=== PATIENT | male | born 1955 | race Caucasian/White ===

== ENCOUNTER 2021-03-07 06:25 | Day surgery (SDC) | payer MEDICARE, BC, SELFPAY ==
[2021-03-01 11:26] VITALS: BMI 39.1
--- NOTE | 2021-03-03 14:45 | MHC.SHP ---
Pre-Procedural Eval Section A Date of Service: 03/03/21 The patient is an INPATIENT: No Changes since office visit: No Cold of Flu in the past 2 weeks, No New Medical Problems, No Changes in Medication and No Patient answered all questions The History & Physical has been completed within 30 days and I have reviewed it.: Yes Section B Chief Complaint: cataract Allergies: Allergies Allergy/AdvReac Type Severity Reaction Status Date / Time No Known Allergies Allergy Verified 03/01/21 11:22 Plan Diagnosis/Plan: Unchanged I have reviewed the history and physical and performed a pertinent physical examination on my patient. No changes have occurred unless specified.
--- NOTE | 2021-03-03 14:46 | MHC.SHP ---
Pre-Procedural Eval Section A Date of Service: 03/04/21 The patient is an INPATIENT: No Changes since office visit: No Cold of Flu in the past 2 weeks, No New Medical Problems, No Changes in Medication and No Patient answered all questions The History & Physical has been completed within 30 days and I have reviewed it.: Yes Section B Chief Complaint: cataract Allergies: Allergies Allergy/AdvReac Type Severity Reaction Status Date / Time No Known Allergies Allergy Verified 03/01/21 11:22 Plan Diagnosis/Plan: Unchanged I have reviewed the history and physical and performed a pertinent physical examination on my patient. No changes have occurred unless specified.
--- NOTE | 2021-03-04 13:12 | P.CONAN_ITS ---
Documented by User: Susie Valencia NP 03/04/21 13:13 HPI - Anesthesia Eval Consult details Narrative: 66yo M for Right Cataract Extraction IOL Insertion PCP cleared No prev cataract on record Eliquis for afib PMFSH Past Medical History Medical History (Updated 03/01/21 @ 12:29 by Neda Cooper, RN) A-fib Arthritis Bilateral cataracts CKD (chronic kidney disease) COVID-19 vaccine series completed Elevated cholesterol HTN (hypertension) On anticoagulant therapy Surgical History Surgical History (Updated 03/01/21 @ 11:22 by Neda Cooper, RN) History of arthroscopy of knee History of foot surgery History of lumbar discectomy History of shoulder surgery Social History Social History Are you a primary transition of care specialist to a significant other at home: No Do you presently have visiting nurse or other home services: No Patient Tobacco Use Status: Former Tobacco user Quit Date: 35 yrs ago Tobacco use type: Cigarette Second Hand Smoke Exposure: No Use of substances other than those prescribed or required for medical reasons: No Have you been hit, kicked, punched, or otherwise hurt by someone within the past year? If so, by whom?: No Are you DNR?: No Advance Directives: No Advance Directives Information Provided: No Advance Directives on File: No Recently lost weight without trying: No Eating poorly because of decreased appetite: No Nutrition Risks: No Nutritional Risk Meds Allergies Allergy/AdvReac Type Severity Reaction Status Date / Time No Known Allergies Allergy Verified 03/07/21 06:33 Home Medications Medication Instructions Recorded Confirmed Last Taken Type amlodipine 10 mg tablet 10 mg PO DAILY 03/01/21 03/01/21 03/07/21 05:30 History apixaban 5 mg tablet (Eliquis) 5 mg PO BID 03/01/21 03/01/21 03/07/21 05:30 History atorvastatin 40 mg tablet 40 mg PO QPM 03/01/21 03/01/21 Unknown History candesartan 32 mg tablet 32 mg PO DAILY 03/01/21 03/01/21 03/07/21 05:30 History carvedilol 12.5 mg tablet 12.5 mg PO BID 03/01/21 03/01/21 03/07/21 05:30 History docusate sodium 100 mg capsule 100 mg PO DAILY 03/01/21 03/01/21 Unknown History (Colace) hydralazine 25 mg tablet 25 mg PO TID 03/01/21 03/01/21 03/07/21 05:30 History oxybutynin chloride 10 mg 10 mg PO DAILY 03/01/21 03/01/21 Unknown History tablet,extended release 24 hr Exam Exam Date and Time: March 04, 2021 1312 Height,Weight and Vital Signs: Height 5 ft 7 in Weight 113.398 kg Assessment and Plan Assessment Anesthesia Assessment: Chart Reviewed Documented by User: Christian Steele MD 03/07/21 07:07 [facility] Past Medical History Medical History (Updated 03/01/21 @ 12:29 by Neda Cooper RN) A-fib Arthritis Bilateral cataracts CKD (chronic kidney disease) COVID-19 vaccine series completed Elevated cholesterol HTN (hypertension) On anticoagulant therapy Family History Family history of problems with anesthesia: No Surgical History Surgical History (Updated 03/01/21 @ 11:22 by Neda Cooper RN) History of arthroscopy of knee History of foot surgery History of lumbar discectomy History of shoulder surgery History of Problems with Anesthesia: No Social History Social History Are you a primary transition of care specialist to a significant other at home: No Do you presently have visiting nurse or other home services: No Patient Tobacco Use Status: Former Tobacco user Quit Date: 35 yrs ago Tobacco use type: Cigarette Second Hand Smoke Exposure: No Use of substances other than those prescribed or required for medical reasons: No Have you been hit, kicked, punched, or otherwise hurt by someone within the past year? If so, by whom?: No Are you DNR?: No Advance Directives: No Advance Directives Information Provided: No Advance Directives on File: No Recently lost weight without trying: No Eating poorly because of decreased appetite: No Nutrition Risks: No Nutritional Risk Meds Allergies Allergy/AdvReac Type Severity Reaction Status Date / Time No Known Allergies Allergy Verified 03/07/21 06:33 Home Medications Medication Instructions Recorded Confirmed Last Taken Type amlodipine 10 mg tablet 10 mg PO DAILY 03/01/21 03/01/21 03/07/21 05:30 History apixaban 5 mg tablet (Eliquis) 5 mg PO BID 03/01/21 03/01/21 03/07/21 05:30 History atorvastatin 40 mg tablet 40 mg PO QPM 03/01/21 03/01/21 Unknown History candesartan 32 mg tablet 32 mg PO DAILY 03/01/21 03/01/21 03/07/21 05:30 History carvedilol 12.5 mg tablet 12.5 mg PO BID 03/01/21 03/01/21 03/07/21 05:30 History docusate sodium 100 mg capsule 100 mg PO DAILY 03/01/21 03/01/21 Unknown History (Colace) hydralazine 25 mg tablet 25 mg PO TID 03/01/21 03/01/21 03/07/21 05:30 History oxybutynin chloride 10 mg 10 mg PO DAILY 03/01/21 03/01/21 Unknown History tablet,extended release 24 hr Exam Airway Mallampati Class: III TM Dist: >3cm Neck ROM: Full Loose/Missing/Broken Teeth: Yes Heart: irreg irreg s1s2 Lungs: cta b/l Assessment and Plan Assessment Anesthesia Assessment: Anesthesia Plan Discussed Final Anesthetic Review Family History of Problems with Anesthesia: No History of Problems with Anesthesia: No NPO: Yes ASA Class: III Final Preanesthetic Review: No Changes in Pt Med Stat, Meds/Allgs Chart Reviewed, Consent Obtained/Reviewed and Anes Risks/Benef Reviewed Patient Risk: Intermediate Procedure Risk: Low Assessment/Block/Sedation in SS: Assess/Block/Sedation-SS Anesthetic Plan Anesthetic Plan: MAC: and Agree w/ Assess. and Plan Disposition: Standard PACU
[2021-03-07 06:44] VITALS: BP 154/65; PULSE 55; RESP 16; TEMP 36.2; O2SAT 96
[2021-03-07] MEDS: Tetracaine HCl/PF 0.5% Oph Sol 4 ML DROPS 1 DROP EYE-RIGHT (06:50)
[2021-03-07] MEDS: Tropicamide 1 % Ophth Sol 3 ML BTL 1 DROP EYE-RIGHT ×3 (06:52→07:04)
[2021-03-07] MEDS: Lactated Ringers 500 ML 50 ML IV (06:52)
[2021-03-07] MEDS: Phenylephrine HCL 2.5% Oph SoL 2 ML BOTTLE 1 DROP EYE-RIGHT ×3 (06:56→07:08)
--- NOTE | 2021-03-07 08:21 | HO.PNOPHT ---
Ophthalmology Procedure Procedure Date of Service: 03/07/21 Ophthalmology Viscoelastic: Healperez Lojat Dual Pack Pro Ophthalmology Lenses: TECALISA [id number] (23) Procedure Notes: PREOPERATIVE DIAGNOSIS: Decreased visual acuity right eye secondary to cataract POSTOPERATIVE DIAGNOSIS: Same PROCEDURE: Right cataract extraction with intraocular lens insertion SURGEON: Kemal Ware M.D. ANESTHESIA: Topical/MAC ESTIMATED BLOOD LOSS: None COMPLICATIONS: None After obtaining informed consent, the patient was brought to the operating room suite and placed in the supine position. After adequate sedation per anesthesia, topical drops of Tetracaine were given to the right eye. The eye was then prepped and draped in the usual sterile fashion. The operating room microscope was then positioned over the operative eye and a lid speculum placed. A paracentesis was created. Viscoelastic was then instilled into the anterior chamber. A three plane incision was then created temporally, utilizing a 2.85 mm keratome. Capsulotomy forceps were then utilized to create a circular tear capsulotomy. Hydrodissection and hydrodelineation were carried out until adequate mobilization of the nucleus occurred. Phacoemulsification was then utilized to remove the dense central nucleus followed by removal of the cortical material utilizing the automated aspiration irrigation unit. Viscoelastic was instilled into the posterior capsular bag followed by placement of a posterior chamber intraocular lens without difficulty. The residual Viscoelastic was then removed utilizing the automated IA machine. The wound was checked and found to be watertight. The patient tolerated the procedure well and the lid speculum was removed. Intracameral injection of Vigamox 0.1 mL followed by a subtenon injection of Kenalog-40 0.2 mL were administered. The patient will be seen in the a.m.
[2021-03-07 08:50] VITALS: BP 156/74; PULSE 59; RESP 16; TEMP 36.8; O2SAT 98
== END 2021-03-07 09:05 | disposition home or self-care (01) ==
PROVIDERS: PCP Family Medicine; Visit Provider Ophthalmology
PROC: (CPT 66985; principal; 2021-03-07 08:20)
DX: H25.11 Age-related nuclear cataract, right eye (principal); H52.4 Presbyopia; H18.413 Arcus senilis, bilateral; I12.9 Hypertensive chronic kidney disease with stage 1 through stage 4 chronic kidney disease, or unspecified chronic kidney disease; N18.1 Chronic kidney disease, stage 1; I48.0 Paroxysmal atrial fibrillation; Z79.01 Long term (current) use of anticoagulants; Z79.899 Other long term (current) drug therapy; Z87.891 Personal history of nicotine dependence
CPT/HCPCS: 66984; J2250; J3010; J3300; V2632

== ENCOUNTER 2021-03-21 06:36 | Day surgery (SDC) | payer MEDICARE, BC, SELFPAY ==
[2021-03-01 11:52] VITALS: BMI 39.1
--- NOTE | 2021-03-17 13:46 | MHC.SHP ---
Pre-Procedural Eval Section A Date of Service: 03/17/21 The patient is an INPATIENT: No Changes since office visit: No Cold of Flu in the past 2 weeks, No New Medical Problems, No Changes in Medication and No Patient answered all questions The History & Physical has been completed within 30 days and I have reviewed it.: Yes Section B Chief Complaint: cataract Allergies: Allergies Allergy/AdvReac Type Severity Reaction Status Date / Time No Known Allergies Allergy Verified 03/07/21 06:33 Plan Diagnosis/Plan: Unchanged I have reviewed the history and physical and performed a pertinent physical examination on my patient. No changes have occurred unless specified.
[2021-03-21 06:57] VITALS: BP 130/64; PULSE 53; RESP 16; TEMP 36.2; O2SAT 95
[2021-03-21] MEDS: Tetracaine HCl/PF 0.5% Oph Sol 4 ML DROPS 1 DROP EYE-LEFT (07:02)
[2021-03-21] MEDS: Tropicamide 1 % Ophth Sol 3 ML BTL 1 DROP EYE-LEFT ×3 (07:03→07:16)
[2021-03-21] MEDS: Phenylephrine HCL 2.5% Oph SoL 2 ML BOTTLE 1 DROP EYE-LEFT ×3 (07:07→07:20)
[2021-03-21] MEDS: Lactated Ringers 500 ML 50 ML IVCONT (07:11)
--- NOTE | 2021-03-21 07:30 | P.CONAN_ITS ---
HPI - Anesthesia Eval Consult details Narrative: Left eye cataract [facility] Past Medical History Medical History (Updated 03/01/21 @ 12:29 by Neda Cooper RN) A-fib Arthritis Bilateral cataracts CKD (chronic kidney disease) COVID-19 vaccine series completed Elevated cholesterol HTN (hypertension) On anticoagulant therapy Family History Family history of problems with anesthesia: No Surgical History Surgical History (Updated 03/15/21 @ 10:01 by Neda Cooper RN) History of arthroscopy of knee History of foot surgery History of lumbar discectomy History of shoulder surgery Hx of cataract extraction History of Problems with Anesthesia: No Social History Social History Are you a primary medicare specialist to a significant other at home: No Do you presently have visiting nurse or other home services: No Patient Tobacco Use Status: Former Tobacco user Quit Date: 35 yrs ago Tobacco use type: Cigarette Second Hand Smoke Exposure: No Use of substances other than those prescribed or required for medical reasons: No Have you been hit, kicked, punched, or otherwise hurt by someone within the past year? If so, by whom?: No Are you DNR?: No Advance Directives: No Advance Directives Information Provided: No Advance Directives on File: No Recently lost weight without trying: No Eating poorly because of decreased appetite: No Meds Allergies Allergy/AdvReac Type Severity Reaction Status Date / Time No Known Allergies Allergy Verified 03/07/21 06:33 Active Medications: Current Medications Lactated Ringer's (Lr) 500 mls @ 50 mls/hr IVCONT .Q10H JERAD Last Admin: 03/21/21 07:11 Dose: 50 mls/hr Documented by: Povidone Iodine (Povidone Iodine 5 % [facility] Soln 30 Ml Bottle) 1 appl EYE-LEFT PREOP PRN PRN Reason: Pre-Op Surgical Implant Prophy Home Medications Medication Instructions Recorded Confirmed Last Taken Type amlodipine 10 mg tablet 10 mg PO DAILY 03/01/21 03/01/21 03/21/21 History apixaban 5 mg tablet (Eliquis) 5 mg PO BID 03/01/21 03/01/21 03/21/21 History atorvastatin 40 mg tablet 40 mg PO QPM 03/01/21 03/01/21 Unknown History candesartan 32 mg tablet 32 mg PO DAILY 03/01/21 03/01/21 03/21/21 History carvedilol 12.5 mg tablet 12.5 mg PO BID 03/01/21 03/01/21 03/21/21 History docusate sodium 100 mg capsule 100 mg PO DAILY 03/01/21 03/01/21 Unknown History (Colace) hydralazine 25 mg tablet 25 mg PO TID 03/01/21 03/01/21 03/21/21 History oxybutynin chloride 10 mg 10 mg PO DAILY 03/01/21 03/01/21 03/21/21 History tablet,extended release 24 hr Exam Exam Date and Time: March 21, 2021 0730 Height,Weight and Vital Signs: Height 5 ft 7 in Weight 113.398 kg Last Vital Signs Temp 97.2 F 03/21/21 06:57 Pulse 53 03/21/21 06:57 Resp 16 03/21/21 06:57 BP 130/64 03/21/21 06:57 Pulse Ox 95 03/21/21 06:57 Airway Mallampati Class: III TM Dist: >3cm Neck ROM: Full Loose/Missing/Broken Teeth: No Heart: rrr+[id number] Lungs: CTA b/l Assessment and Plan Assessment Anesthesia Assessment: Anesthesia Plan Discussed and Chart Reviewed Final Anesthetic Review Family History of Problems with Anesthesia: No History of Problems with Anesthesia: No NPO: Yes ASA Class: III Final Preanesthetic Review: No Changes in Pt Med Stat, Meds/Allgs Chart Reviewed, Consent Obtained/Reviewed and Anes Risks/Benef Reviewed Patient Risk: Intermediate Procedure Risk: Low Assessment/Block/Sedation in SS: Assess/Block/Sedation-SS Anesthetic Plan Anesthetic Plan: MAC: and Agree w/ Assess. and Plan Disposition: Standard PACU
--- NOTE | 2021-03-21 08:35 | HO.PNOPHT ---
Ophthalmology Procedure Procedure Date of Service: 03/21/21 Ophthalmology Viscoelastic: Healon Duet Dual Pack Pro Ophthalmology Lenses: TECNIS [id number] (22.5) Procedure Notes: PREOPERATIVE DIAGNOSIS: Decreased visual acuity left eye secondary to cataract POSTOPERATIVE DIAGNOSIS: Same PROCEDURE: Left cataract extraction with intraocular lens insertion SURGEON: Kemal Ware M.D. ANESTHESIA: Topical/MAC ESTIMATED BLOOD LOSS: None COMPLICATIONS: None After obtaining informed consent, the patient was brought to the operation room suite and placed in the supine position. After adequate sedation per anesthesia, topical drops of Tetracaine were given to the left eye. The eye was then prepped and draped in the usual sterile fashion. The operating room microscope was then positioned over the operative eye and a lid speculum placed. A paracentesis was created. Viscoelastic was then instilled into the anterior chamber. A three plane incision was then created temporally, utilizing a 2.85 mm keratome. Capsulotomy forceps were then utilized to create a circular tear capsulotomy. Hydrodissection and hydrodelineation were carried out until adequate mobilization of the nucleus occurred. Phacoemulsification was then utilized to remove the dense central nucleus followed by removal of the cortical material utilizing the automated aspiration irrigation unit. Viscoat elastic was instilled into the posterior capsular bag followed by placement of a posterior chamber intraocular lens without difficulty. The residual Viscoat elastic was then removed utilizing the automated IA machine. The wound was check and found to be watertight. The patient tolerated the procedure well and the lid speculum was removed. Intracameral injection of Vigamox 0.1 mL followed by a subtenon injection of Kenalog-40 0.2 mL were administered. The patient will be seen in the a.m.
[2021-03-21 09:04] VITALS: BP 138/74; PULSE 54; RESP 20; TEMP 36.4; O2SAT 95
== END 2021-03-21 09:07 | disposition home or self-care (01) ==
PROVIDERS: PCP Family Medicine; Visit Provider Ophthalmology
PROC: (CPT 66985; principal; 2021-03-21 08:20)
DX: H25.12 Age-related nuclear cataract, left eye (principal); H52.4 Presbyopia; I10 Essential (primary) hypertension; E78.00 Pure hypercholesterolemia, unspecified; I48.91 Unspecified atrial fibrillation; R42 Dizziness and giddiness; Z79.01 Long term (current) use of anticoagulants; Z79.899 Other long term (current) drug therapy; Z87.891 Personal history of nicotine dependence
CPT/HCPCS: 66984; J2250; J3010; J3300; V2632

== ENCOUNTER 2024-03-03 10:35 | Outpatient (REF) | payer MEDICARE, BC, SELFPAY ==
[2024-03-03 11:26] VITALS: BP 160/74; PULSE 65; RESP 16; TEMP 36.1; O2SAT 95; BMI 38.4
== END 2024-03-03 10:36 | disposition home or self-care (01) ==
LOC: HO.MS 10:35
PROVIDERS: PCP Family Medicine; Visit Provider Ophthalmology
PROC: (CPT 66821; principal; 2024-03-03 12:40)
DX: H26.492 Other secondary cataract, left eye (principal)
CPT/HCPCS: 66821